=== PATIENT | male | born 1970 | race Caucasian/White ===

== ENCOUNTER → 2017-09-11 | Outpatient (CLI) | payer BC ==
[~2017-09-11] MED LIST: IBU-8800 MG PO; MSIR30 MG PO; NO HOME MEDICATIONS; ZOFRAN 4MG T4 MG/TAB PO
== END ==
LOC: COL.RAD 15:16
DX: R59.9 Enlarged lymph nodes, unspecified (principal)

== ENCOUNTER → 2019-01-01 | Outpatient (CLI) | payer BC | LOC: COL.RAD 12:46 | DX: G44.201 Tension-type headache, unspecified, intractable (principal); H53.8 Other visual disturbances; J34.89 Other specified disorders of nose and nasal sinuses ==

== ENCOUNTER 2019-01-12 03:46 | Emergency (ER) | payer BC ==
[~2019-01-12] VITALS: Ht 177.8 cm; Wt 97.7 kg
[2019-01-12 03:51] VITALS: TEMP 98.7
[2019-01-12] MEDS ORDERED: FLEXERIL 1010 MG/TAB PO (03:55)
[2019-01-12] MEDS ORDERED: NORCO 325 MG-51 TAB PO (03:55)
[2019-01-12 04:35] LABS: BASO # 0.1 (0.0-0.2); BASO % 0.5 % (0.0-2.0); EOS # 0.3 (0.0-0.7); EOS % 2.6 % (0-4.0); GRAN # 5.8 (1.4-6.5); GRAN % 60.3 % (42.2-75.2); HEMATOCRIT 45.3 % (42.0-52.0); HEMOGLOBIN 15.1 g/dl (13.5-18.0); LYMPH # 2.7 (1.2-3.4); LYMPH % 27.9 % (20.0-51.0); MEAN CELL VOLUME 91 fl (80.0-100.0); MEAN CORPUSCULAR HEMOGLOBIN 30 pg (27.0-31.0); MEAN CORPUSCULAR HGB CONC 33 g/dl (33.0-37.0); MEAN PLATELET VOLUME 10.7 fl (7.4-10.4); MONO # 0.8 (0.1-0.6); MONO % 8.3 % (1.7-9.3); PLATELET COUNT 207 K/mm3 (130-400); RED BLOOD COUNT 4.99 M/mm3 (4.20-5.60); REDCELL DISTRIBUTION WIDTH-CV 12.3 % (11.5-14.5)
[2019-01-12 04:52] LABS: ALBUMIN 4.1 gm/dL (3.5-5.0); BILIRUBIN,TOTAL 0.8 mg/dL (0.0-1.0); C-REACTIVE PROTEIN 0.6 mg/dL (0.0-0.9); CALCIUM 9.5 mg/dL (8.4-10.2); CREATININE, serum 0.92 (0.66-1.25); POTASSIUM 4.1 mmol/L (3.4-5.0); TOTAL PROTEIN 7.9 gm/dL (6.4-8.2)
[2019-01-12 04:56] LABS: ERYTHROCYTE SEDIMENTATION RATE 20 mm/hr (0-15)
[2019-01-12 05:33] VITALS: BP 112/72; PULSE 63
== END 2019-01-12 05:33 | disposition home or self-care (01) ==
LOC: COL.ER 03:46
PROVIDERS: Emergency Medicine
DX: G44.82 Headache associated with sexual activity (principal)
CPT/HCPCS: J1200; J1630; J7030

== ENCOUNTER → 2022-01-12 | Outpatient (CLI) | payer OTHER ==
[~2022-01-12] MED LIST changes: +FLEXERIL 1010 MG/TAB PO; +NORCO 325 MG-51 TAB PO
== END ==
LOC: COL.RAD 08:02
DX: M50.11 Cervical disc disorder with radiculopathy, high cervical region (principal); M50.121 Cervical disc disorder at C4-C5 level with radiculopathy; M50.122 Cervical disc disorder at C5-C6 level with radiculopathy; M50.123 Cervical disc disorder at C6-C7 level with radiculopathy; M48.02 Spinal stenosis, cervical region; M25.50 Pain in unspecified joint; R20.2 Paresthesia of skin